=== PATIENT | female | born 1980 | race Caucasian/White ===

== ENCOUNTER → 2022-10-12 | Outpatient (CLI) | payer OTHER ==
[2022-10-12 11:17] LABS: Basophils # (auto) 0 10 ^3/uL (0-0.2); Basophils % (auto) 0.4 % (0.0-2.0); Eosinophils # (auto) 0 10 ^3/uL (0-0.8); Eosinophils % (auto) 0.4 % (0.0-7.0); Hematocrit 39.8 % (36.0-46.0); Hemoglobin 13.1 g/dL (12.2-16.2); Lymphocytes # (auto) 1.8 10 ^3/uL (0.4-5.4); Lymphocytes % (auto) 15.9 % (10.0-50.0); Mean Corpuscular Volume 81.9 fL (80.0-100.0); Monocytes # (auto) 0.5 10 ^3/uL (0-1.3); Monocytes % (auto) 4.6 % (0.0-12.0); Neutrophils % (auto) 78.7 % (37.0-80.0); Red Blood Cells 4.86 10^6/uL (4.0-5.20); Red Cell Distribution Width 15.2 % (11.8-14.3); White Blood Cell 11.4 10^3/uL (4.4-10.8)
[2022-10-12 11:24] LABS: Urine Bacteria NONE SEEN /hpf (None Seen); Urine Blood Negative /uL (Negative); Urine Hyaline Cast FEW /lpf (0 - 2); Urine Mucus FEW (None Seen); Urine Specific Gravity 1.026 (1.001-1.035); Urine WBC 2 /hpf (0 - 5)
[2022-10-12 11:50] LABS: Ferritin 30.4 ng/mL (10-322); Leuteinizing Hormone 3.6 IU/L
[2022-10-12 11:51] LABS: Folate (Folic Acid) 15.1 ng/mL (5.38-24); Follicle Stimulating Hormone 6.34 IU/L (SEE BELOW)
[2022-10-12 12:25] LABS: Albumin 3.5 g/dL (3.4-5.0); Potassium 3.7 mmol/L (3.5-5.1)
[2022-10-12 12:33] LABS: BUN/Creatinine Ratio 25.7 (10.0-20.0); Bilirubin, Total 0.4 mg/dL (0.2-1.0); Calcium 9.2 mg/dL (8.5-10.1); Total Protein 7.4 g/dL (6.4-8.2)
== END | disposition home or self-care (01) ==
LOC: LAB 10:30
PROVIDERS: ATTEND Family Medicine
DX: Z00.01 Encounter for general adult medical examination with abnormal findings (principal); N95.1 Menopausal and female climacteric states; N93.9 Abnormal uterine and vaginal bleeding, unspecified
CPT/HCPCS: 36415; 80053; 80061; 81001; 82306; 82607; 82670; 82728; 82746; 83001; 83002; 83036; 83540; 84403; 84443; 85025

== ENCOUNTER → 2023-07-25 | Outpatient (CLI) | payer OTHER ==
[2023-07-25 09:55] LABS: Urine Bacteria None Seen /hpf (None Seen)
[2023-07-25 10:27] LABS: Urine Blood TRACE /uL (Negative); Urine Clarity Clear (Clear); Urine Color Yellow (Yellow); Urine Mucus FEW (None Seen); Urine Protein, UAD TRACE (Negative); Urine Specific Gravity 1.033 (1.001-1.035); Urine Urobilinogen Normal (Negative); Urine WBC 2 /hpf (0 - 5)
[2023-07-25 11:08] LABS: Alanine Aminotransferase 25 U/L (7-40); Alkaline Phosphatase 56 U/L (46-116); Anion Gap 9 (5-15); BUN/Creatinine Ratio 31.6 (10.0-20.0); Blood Urea Nitrogen 18 mg/dL (9-23); Calcium 9.7 mg/dL (8.5-10.1); Carbon Dioxide 25 mmol/L (20-30); Chloride 104 mmol/L (98-107); Glucose 140 mg/dL (74-106); LDL Cholesterol 124 mg/dL (< 100); Sodium 138 mmol/L (136-145); Triglycerides 107 mg/dL (< 150)
[2023-07-25 11:09] LABS: Albumin 4.6 g/dL (3.2-4.8); Aspartate Aminotransferase 12 U/L (13-40); Bilirubin, Total 0.4 mg/dL (0.2-1.0); Cholesterol 173 mg/dL (< 200); HDL Cholesterol 41 mg/dL (40-59); Total Protein 7.2 g/dL (5.7-8.2)
== END | disposition home or self-care (01) ==
LOC: LAB 09:46
PROVIDERS: ATTEND Family Medicine
DX: N30.00 Acute cystitis without hematuria (principal); E88.810 Metabolic syndrome
CPT/HCPCS: 36415; 80053; 80061; 81001; 87086

== ENCOUNTER → 2024-02-20 | Outpatient (CLI) | payer OTHER ==
[2024-02-20 11:18] LABS: Alanine Aminotransferase 32 U/L (7-40); Albumin 4.6 g/dL (3.2-4.8); Alkaline Phosphatase 60 U/L (46-116); Anion Gap 7 (5-15); Aspartate Aminotransferase 12 U/L (13-40); BUN/Creatinine Ratio 13.6 (10.0-20.0); Bilirubin, Total 0.5 mg/dL (0.2-1.0); Blood Urea Nitrogen 9 mg/dL (9-23); Calcium 10.3 mg/dL (8.7-10.4); Carbon Dioxide 28 mmol/L (20-31); Chloride 104 mmol/L (98-107); Cholesterol 155 mg/dL (< 200); Glucose 165 mg/dL (74-106); HDL Cholesterol 39 mg/dL (40-59); LDL Cholesterol 107 mg/dL (< 100); Potassium 3.7 mmol/L (3.5-5.1); Sodium 139 mmol/L (136-145); Total Protein 7.2 g/dL (5.7-8.2); Triglycerides 112 mg/dL (< 150)
[2024-02-20 11:21] LABS: Creatinine, Urine 326.19 mg/dL (30.0-125.0)
== END | disposition home or self-care (01) ==
LOC: LAB 10:23
PROVIDERS: ATTEND Family Medicine
DX: I12.9 Hypertensive chronic kidney disease with stage 1 through stage 4 chronic kidney disease, or unspecified chronic kidney disease (principal); E11.22 Type 2 diabetes mellitus with diabetic chronic kidney disease; N18.9 Chronic kidney disease, unspecified; E11.65 Type 2 diabetes mellitus with hyperglycemia; E78.2 Mixed hyperlipidemia
CPT/HCPCS: 36415; 80053; 80061; 82043; 82570; 83036

== ENCOUNTER 2024-02-21 18:04 | Inpatient (IN) | payer OTHER ==
[~2024-02-21] VITALS: Ht 175.3 cm; Wt 106.8 kg
[2024-02-21] MEDS: ONDANSETRON HCL 4 MG/2 ML VIAL IV ONE (18:45)
[2024-02-21] MEDS: MORPHINE SULFATE 4 MG/ML SYR/VIAL IV ONE (18:45)
--- NOTE | 2024-02-21 18:47 | ED.PDOC ---
History of Present Illness HPI Comments 43 y/o F, with a Hx of preDM, HLD, HTN, morbid obesity, and 3x laparoscopy, presents with c/o non-radiating, right-sided abdominal pain, nausea, and chills for 1 day. Patient endorses on unprovoked and gradual onset of symptoms, yesterday, that has been persisting since. Patient states on pain being a 9/10 a nd having no Hx of similar pain in the past. Patient informs on being on Ozempic medication for the past 2 months in addition to reporting on not being , currently. Patient denies any additional pertinent or relevant Hx in addition to recent injuries, stress, sick contact, spoiled food, substance use/exposure, or travel. Denies having any vomiting, diarrhea, urinary symptoms, fever, or other associated symptoms or modifiers at this time. 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 Family History Family History: No family hx of DM, No family hx of Heart samuel, No family hx of HTN, No family hx ofKidney samuel, No family hx of Liver samuel, No family hx of Lung samuel, No family hx of Stroke, Family hx of Cancer Social History Smoker: Non-Smoker Alcohol: Denies ETOH Use Drugs: Denies Drug Use Lives In: Home Constitutional: reports: chills; denies: diaphoresis, fatigue, fever, malaise, sweats, weakness, others EENTM: denies: blurred vision, double vision, ear bleeding, ear discharge, ear drainage, ear pain, ear ringing, eye pain, eye redness, hearing loss, mouth pain, mouth swelling, nasal discharge, nose bleeding, nose congestion, nose pain, photophobia, tearing, throat pain, throat swelling, voice changes, others Respiratory: denies: cough, hemoptysis, orthopnea, SOB at rest, shortness of breath, SOB with excertion, stridor, wheezing, others Cardiovascular: denies: chest pain, dizzy spells, diaphoresis, Dyspnea on exertion, edema, irregular heart beat, left arm pain, lightheadedness, palpitations, PND, syncope, others Gastrointestinal: reports: abdominal pain, nausea; denies: abdomen distended, blood streaked bowels, constipated, diarrhea, dysphagia, difficulty swallowing, hematemesis, melena, poor appetite, poor fluid intake, rectal bleeding, rectal pain, vomiting, others Genitourinary: denies: abnormal vagina bleeding, burning, dyspareunia, dysuria, flank pain, frequency, hematuria, incontinence, pain, , vagina discharge, urgency, others Neurological: denies: dizziness, fainting, headache, left sided numbness, left sided weakness, numbness, paresthesia, pre-existing deficit, right sided n umbness, right sided weakness, seizure, speech problems, tingling, tremors, weakness, others Musculoskeletal: denies: back pain, gout, joint pain, joint swelling, muscle pain, muscle stiffness, neck pain, others Integumetry: denies: bruises, change in color, change in hair/nails, dryness, laceration, lesions, lumps, rash, wounds, others Allergic/Immunocompromised: denies: Difficulty Healing, Frequent Infections, Hives, Itching, others Hematologic/Lymphatic: denies: anemia, blood clots, easy bleeding, easy bruising, swollen glands, others Endocrine: denies: excessive hunger, excessive sweating, excessive thirst, excessive urination, flushing, intolerance to cold, intolerance to heat, unexplained weight gain, unexplained weight loss, others Psychiatric: denies: anxiety, bipolar disorder, depression, hopeless, panic disorder, schizophrenia, sleepless, suicidal, others All Other Systems: Reviewed and Negative Physical Exam General Appearance: Moderate Distress, Obese HEENT: Normal ENT Inspection, Pharynx Normal, TMs Normal Neck: Full Range of Motion, Non-Tender, Normal, Normal Inspection Respiratory: Chest Non-Tender, Lungs Clear, No Accessory Muscle Use, No Respiratory Distress, Normal Breath Sounds Cardiovascular: No Edema, No JVD, No Murmur, No Gallop, Normal Peripheral Pulses, Regular Rate/Rhythm Breast Exam: Deferred Gastrointestinal: No Organomegaly, No Pulsatile Mass, Normal Bowel Sounds, RUQ, Soft, Tenderness Genitalia: Deferred Pelvic: Deferred Rectal: Deferred Extremities: No calf tenderness, Normal capillary refill, Normal inspection, Normal range of motion, Non-tender, No pedal edema Musculoskeletal : Apperance: Normal 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 Was a procedure done?: No Differential Dx Considerations may include: cholecystitis, cholelithiasis, gastritis, gastroenteritis, nephrolithiasis, ovarian cysts, ovarian torsion, , ectopic X-Ray, Labs, Meds, VS Vital Signs Date Time Temp Pulse Resp B/P (MAP) Pulse Ox O2 Delivery O2 Flow Rate FiO2 02/21/24 18:22 98.5 99 18 143/91 (108) 95 Lab Test 02/21/24 18:47 02/21/24 18:28 02/21/24 17:20 Range/Units White Blood Count 15.0 H 4.4-10.8 10^3/uL Red Blood Count 4.81 4.0-5.20 10^6/uL Hemoglobin 13.6 12.2-16.2 g/dL Hematocrit 40.0 36.0-46.0 % Mean Corpuscular Volume 83.2 80.0-100.0 fL Mean Corpuscular Hemoglobin 28.4 28.0-32.0 pg Mean Corpuscular Hemoglobin Concent 34.1 32.0-36.0 g/dL Red Cell Distribution Width 14.4 H 11.8-14.3 % Platelet Count 352 140-450 10^3/uL Mean Platelet Volume 8.2 6.9-10.8 fL Neutrophils (%) (Auto) 83.3 H 37.0-80.0 % Lymphocytes (%) (Auto) 10.2 10.0-50.0 % Monocytes (%) (Auto) 5.9 0.0-12.0 % Eosinophils (%) (Auto) 0.1 0.0-7.0 % Basophils (%) (Auto) 0.5 0.0-2.0 % Neutrophils # (Auto) 12.5 H 1.6-8.6 10 ^3/uL Lymphocytes # (Auto) 1.5 0.4-5.4 10 ^3/uL Monocytes # (Auto) 0.9 0-1.3 10 ^3/uL Eosinophils # (Auto) 0 0-0.8 10 ^3/uL Basophils # (Auto) 0.1 0-0.2 10 ^3/uL Nucleated Red Blood Cells 0.0 % Sodium Level 139 136-145 mmol/L Potassium Level 3.2 L 3.5-5.1 mmol/L Chloride Level 104 98-107 mmol/L Carbon Dioxide Level 25 20-31 mmol/L Anion Gap 10 5-15 Blood Urea Nitrogen < 5 L 9-23 mg/dL Creatinine 0.64 0.550-1.02 mg/dL Glomerular Filtration Rate Calc 112 >90 mL/min BUN/Creatinine Ratio 7.8 L 10.0-20.0 Serum Glucose 151 H 74-106 mg/dL Calcium Level 10.4 8.7-10.4 mg/dL Total Bilirubin 0.7 0.2-1.0 mg/dL Aspartate Amino Transferase (AST) 13 13-40 U/L Alanine Aminotransferase (ALT) 35 7-40 U/L Alkaline Phosphatase 67 46-116 U/L Total Protein 7.4 5.7-8.2 g/dL Albumin 4.8 3.2-4.8 g/dL Lipase Pending Urine Test Negative Negative Urine Color Colorless Yellow Urine Clarity Clear Clear Urine pH 7.5 5.0-9.0 Urine Specific [place] 1.006 1.001-1.035 Urine Protein Negative Negative Urine Ketones Negative Negative Urine Blood Negative Negative /uL Urine Nitrite Negative Negative Urine Bilirubin Negative Negative Urine Urobilinogen Normal Negative mg/dL Urine Leukocyte Esterase 3+ Negative /uL Urine RBC 1 0 - 4 /hpf Urine WBC 8 0 - 5 /hpf Urine Squamous Epithelial Cells Few <5 /hpf Urine Amorphous Crystals Few None Seen /hpf Urine Bacteria Few H None Seen /hpf Urine Mucus Few None Seen Urine Glucose Normal Normal mg/dL Ultrasound of the gallbladder shows: IMPRESSION: Cholelithiasis without sonographic evidence of cholecystitis. The patient's [place] [id number] The rest of the CBC and chemistry panel are within normal limits The patient's lipase is within normal limits The test is negative The urine test is positive for UTI The patient was being given Rocephin 1 g IV piggyback for the UTI The patient was given morphine, Zofran and Protonix for the abdominal pain The patient was being admitted at this time. Images Reviewed?: Images reviewed and evaluated by me Time of 1ST Reevaluation: 19:10 Reevaluation 1ST: Unchanged Time of 2ND Reevaluation: 20:18 Reevaluation 2ND: Unchanged Patient Education/Counseling: Diagnosis, Treatment, Prognosis Family Education/Counseling: No Family Present Departure 1 Departure Time of Disposition: 20:19 Impression: Primary Impression: Intractable abdominal pain Additional Impressions: Cholelithiasis Qualified Codes: K80.20 - Calculus of gallbladder without cholecystitis without obstruction UTI (urinary tract infection) Qualified Codes: N30.00 - Acute cystitis without hematuria Disposition: ADMITTED INPATIENT Admit to: Med Surg Condition: Fair Critical Care Note Critical Care Time?: No Stability Stability form required: No Heart Score Heart Score: Heart Score Response (Comments) Value History N/A 0 EKG N/A 0 Age N/A 0 Risk Factors N/A 0 Troponin N/A 0 Total 0 I personally scribed for JULIO SOLO MD ([email or web address]) on 02/21/24 at 18:47. Electronically submitted by Matthias Parada ([email or web address]). JULIO SOLO MD Feb 21, 2024 18:47
[2024-02-21 18:50] LABS: Urine Amorphous Crystal FEW /hpf (None Seen); Urine Bacteria FEW /hpf (None Seen); Urine Blood Negative /uL (Negative); Urine Clarity Clear (Clear); Urine Color Colorless (Yellow); Urine Mucus FEW (None Seen); Urine Protein, UAD Negative (Negative); Urine Specific Gravity 1.006 (1.001-1.035); Urine Urobilinogen Normal (Negative); Urine WBC 8 /hpf (0 - 5); Urine pH 7.5 (5.0-9.0)
[2024-02-21 19:02] LABS: Basophils # (auto) 0.1 10 ^3/uL (0-0.2); Basophils % (auto) 0.5 % (0.0-2.0); Eosinophils # (auto) 0 10 ^3/uL (0-0.8); Eosinophils % (auto) 0.1 % (0.0-7.0); Hemoglobin 13.6 g/dL (12.2-16.2); Lymphocytes # (auto) 1.5 10 ^3/uL (0.4-5.4); Lymphocytes % (auto) 10.2 % (10.0-50.0); Mean Corpuscular Hemoglobin 28.4 pg (28.0-32.0); Mean Corpuscular Hgb Conc. 34.1 g/dL (32.0-36.0); Mean Corpuscular Volume 83.2 fL (80.0-100.0); Monocytes # (auto) 0.9 10 ^3/uL (0-1.3); Monocytes % (auto) 5.9 % (0.0-12.0); Neutrophils # (auto) 12.5 10 ^3/uL (1.6-8.6); Neutrophils % (auto) 83.3 % (37.0-80.0); Platelet Count (auto) 352 10^3/uL (140-450); Red Blood Cells 4.81 10^6/uL (4.0-5.20); Red Cell Distribution Width 14.4 % (11.8-14.3)
[2024-02-21 19:25] LABS: Alanine Aminotransferase 35 U/L (7-40); Albumin 4.8 g/dL (3.2-4.8); Alkaline Phosphatase 67 U/L (46-116); Anion Gap 10 (5-15); Aspartate Aminotransferase 13 U/L (13-40); Bilirubin, Total 0.7 mg/dL (0.2-1.0); Calcium 10.4 mg/dL (8.7-10.4); Carbon Dioxide 25 mmol/L (20-31); Chloride 104 mmol/L (98-107); Glucose 151 mg/dL (74-106); Potassium 3.2 mmol/L (3.5-5.1); Sodium 139 mmol/L (136-145)
[2024-02-21 19:26] LABS: Total Protein 7.4 g/dL (5.7-8.2)
[2024-02-21 19:28] LABS: BUN/Creatinine Ratio 7.8 (10.0-20.0); Blood Urea Nitrogen < 5 mg/dL (9-23)
--- NOTE | 2024-02-21 19:45 | DVH ---
INDICATION: pain TECHNIQUE: Multiple real-time sonographic images were obtained of the right upper quadrant. COMPARISON: None FINDINGS: The liver demonstrates heterogeneous echotexture without focal mass lesions. The liver john sures 23 cm. There is no intrahepatic or extrahepatic ductal dilatation. The common duct measures 0.7 cm. The gallbladder is without evidence of stone or sludge. The gallbladder wall measures 0.3 cm and is within normal limits. The right kidney measures 12.9 cm. The right kidney is normal in contour, size, and shape. The echo genicity is normal. There is no hydronephrosis. The pancreas is not well visualized due to overlying bowel gas. IMPRESSION: Cholelithiasis without sonographic evidence of cholecystitis.
[2024-02-21 19:47] LABS: Lipase 31 U/L (12-53)
[2024-02-21] MEDS: cefTRIAXone 1GM/50ML D5W 50 ML IV ONE (20:30)
[2024-02-21] MEDS ORDERED: MORPHINE SULFATE INJ 2 MG/ml SYRG IV PRN (20:45)
[2024-02-21] MEDS ORDERED: NITROGLYCERIN 0.4 MG SL TAB SL PRN (20:45)
--- NOTE | 2024-02-21 21:52 | DVHHPRES ---
History of Present Illness Resident Creating Document: [facility] RESIDENT History of Present Illness Patient is 43 years old male with past medical history of prediabetes mellitus, hypertension, hyperlipidemia, anxiety, morbid obesity, history of 3 laparoscopic surgery for ovarian cyst came with a complaint of abdominal pain. As per patient patient started having abdominal pain in the epigastric and rapid upper abdominal region started 1 day before, gradual in nature, sharp pain, 10/10 at the beginning now 9/10, moving around the upper abdomen, some pain relief with bowel movement. Patient also endorsed nausea but no vomiting, feeling chilled but no fever. Patient had right knee injury in June 22, 2023 at walk from fall and waiting to be operated. On further discussion patient also reported having urgency and frequency of micturition for last 3-4 days. Also reported constipation for last 3 days. Patient denied any diarrhea, chest pain, short ness of breath, palpitation, acute joint swelling or rash, sick contact, dysarthria change in vision. Initial lab workup revealed leukocytosis with WBC 15.0, hypokalemia, potassium 3.2, serum glucose 151. Urinalysis was positive for UTI, leukocyte esterase 3+, WBC 8, RBC 1, bacteria few. Ultrasound of the abdomen revealed-Cholelithiasis without sonographic evidence of cholecystitis. Patient's home medication include losartan-hydrochlorothiazide, citalopram 10 mg daily, Ozempic, Past Medical History Prediabetes, hypertension, hyperlipidemia, anxiety, morbid obesity, Allergy- NKDA Past Surgical History Laparoscopy x3 due to bilateral ovarian cyst Patient waiting to be operated for right knee injury, Recommended to lose or weight before she can be operated for right knee injury that happened in June 25 at work. Family History Mom cancer of the breast, hypercholesterolemia Dad had cancer 2 of the left groin resume Past Social History Patient denied smoking or alcoholism or drug abuse, lives at home with . Review of Systems Review of Systems Patient reported upper abdominal pain some nausea Cardiovascular- deny acute chest pain or shortness of breath or cough or palpitation Respiratory- denies cough or short of breath or wheezing Gastrointestinal- denies any rectal bleeding, nausea or vomiting Musculoskeletal-denies acute joint swelling or tenderness or redness Neurological- denies acute dysarthria, dysphagia, change in vision Psychiatry- denies depression or SI or HI Skin- denies acute rash or purpura Allergies: Coded Allergies: NO KNOWN ALLERGIES (Unverified , 02/21/24) Medications Current Medications Medications Dose Ordered Sig/Ray Route Start Time Stop Time Status Last Admin Dose Admin Sodium Chloride 10 ml Q8HR IV 02/21/24 22:00 Ondansetron HCl 4 mg Q4HP PRN IV 02/21/24 20:45 Morphine Sulfate 2 mg Q4HPRN PRN IV 02/21/24 20:45 Nitroglycerin 0.4 mg Q5MINP PRN SL 02/21/24 20:45 Morphine Sulfate 2 mg Q30M PRN IV 02/21/24 20:45 Exam Vital Signs Vital Signs Date Time Temp Pulse Resp B/P (MAP) Pulse Ox O2 Delivery O2 Flow Rate FiO2 02/21/24 18:22 98.5 99 18 143/91 (108) 95 Exam General examination- awake, alert, oriented, conversant HEENT- PEERLA, no acute nasal discharge Cardiovascular- S1-S2 audible, rate and rhythm regular, no murmur Respiratory- CTAB, no wheeze or rhonchi Gastrointestinal-epigastric and right upper abdominal tenderness, [place] sign positive, bowel sound+. Nondistended Musculoskeletal-no acute joint swelling or tenderness or redness# Lower extremity- no leg edema Urinary system-right renal angle tenderness positive Neurological- cranial nerves intact, no acute dysarthria or dysphagia Psychiatry- denies depression or SI or HI Skin- no acute rash or purpura Labs/Xrays Labs Test 02/21/24 18:47 02/21/24 18:28 02/21/24 17:20 Range/Units White Blood Count 15.0 H 4.4-10.8 10^3/uL Red Blood Count 4.81 4.0-5.20 10^6/uL Hemoglobin 13.6 12.2-16.2 g/dL Hematocrit 40.0 36.0-46.0 % Mean Corpuscular Volume 83.2 80.0-100.0 fL Mean Corpuscular Hemoglobin 28.4 28.0-32.0 pg Mean Corpuscular Hemoglobin Concent 34.1 32.0-36.0 g/dL Red Cell Distribution Width 14.4 H 11.8-14.3 % Platelet Count 352 140-450 10^3/uL Mean Platelet Volume 8.2 6.9-10.8 fL Neutrophils (%) (Auto) 83.3 H 37.0-80.0 % Lymphocytes (%) (Auto) 10.2 10.0-50.0 % Monocytes (%) (Auto) 5.9 0.0-12.0 % Eosinophils (%) (Auto) 0.1 0.0-7.0 % Basophils (%) (Auto) 0.5 0.0-2.0 % Neutrophils # (Auto) 12.5 H 1.6-8.6 10 ^3/uL Lymphocytes # (Auto) 1.5 0.4-5.4 10 ^3/uL Monocytes # (Auto) 0.9 0-1.3 10 ^3/uL Eosinophils # (Auto) 0 0-0.8 10 ^3/uL Basophils # (Auto) 0.1 0-0.2 10 ^3/uL Nucleated Red Blood Cells 0.0 % Sodium Level 139 136-145 mmol/L Potassium Level 3.2 L 3.5-5.1 mmol/L Chloride Level 104 98-107 mmol/L Carbon Dioxide Level 25 20-31 mmol/L Anion Gap 10 5-15 Blood Urea Nitrogen < 5 L 9-23 mg/dL Creatinine 0.64 0.550-1.02 mg/dL Glomerular Filtration Rate Calc 112 >90 mL/min BUN/Creatinine Ratio 7.8 L 10.0-20.0 Serum Glucose 151 H 74-106 mg/dL Calcium Level 10.4 8.7-10.4 mg/dL Total Bilirubin 0.7 0.2-1.0 mg/dL Aspartate Amino Transferase (AST) 13 13-40 U/L Alanine Aminotransferase (ALT) 35 7-40 U/L Alkaline Phosphatase 67 46-116 U/L Total Protein 7.4 5.7-8.2 g/dL Albumin 4.8 3.2-4.8 g/dL Lipase 31 12-53 U/L Urine Test Negative Negative Urine Color Colorless Yellow Urine Clarity Clear Clear Urine pH 7.5 5.0-9.0 Urine Specific [place] 1.006 1.001-1.035 Urine Protein Negative Negative Urine Ketones Negative Negative Urine Blood Negative Negative /uL Urine Nitrite Negative Negative Urine Bilirubin Negative Negative Urine Urobilinogen Normal Negative mg/dL Urine Leukocyte Esterase 3+ Negative /uL Urine RBC 1 0 - 4 /hpf Urine WBC 8 0 - 5 /hpf Urine Squamous Epithelial Cells Few <5 /hpf Urine Amorphous Crystals Few None Seen /hpf Urine Bacteria Few H None Seen /hpf Urine Mucus Few None Seen Urine Glucose Normal Normal mg/dL Assessment/Plan Assessment/Plan # right upper abdominal and epigastric pain likely due to acute cholecystitis -right upper abdominal pain -[place] sign positive -ultrasound of the abdomen-cholelithiasis -leukocytosis WBC 15.0 -NPO until further order -continue IV fluid as prescribed -ceftriaxone 2 g IV daily -ordered HIDA scan -ordered surgery consult for further evaluation and care -pending CT abdomen and pelvis # suspected acute pyelonephritis -patient with increased urgency and frequency during micturition for last 3-4 days -urinalysis leukocyte esterase 3+, WBC 8, RBC 1, bacteria few -leukocytosis WBC 19832 -right renal angle tenderness positive -continue ceftriaxone 2 g IV daily -continue IV fluid as prescribed -pending CT abdomen and pelvis # sepsis likely due to acute cholecystitis and acute pyelonephritis -leukocytosis WBC 15.0 -pulse 99 -patient complained of chills --patient with increased urgency and frequency during micturition for last 3-4 days -urinalysis leukocyte esterase 3+, WBC 8, RBC 1, bacteria few -right upper abdominal pain -[place] sign positive -ultrasound of the abdomen-cholelithiasis -continue IV fluid as prescribed -continue ceftriaxone 2 g IV daily -pending blood and urine CS -pending CT abdomen and pelvis #Hypokalemia, replenished -K--3.2 -monitor CMP #Diabetes mellitus type 2 -on 02/20/2024- HGB A1c 7.5 -monitor blood sugar -insulin sliding scale #Hypertension -hydralazine 10 mg q.6h p.r.n. -monitor blood pressure #Anxiety -follow up outpatient # Leukocytosis likely due to acute pyelonephritis and acute cholecystitis -continue current management # morbid obesity, BMI 41.7 -patient was counseled about weight reduction, healthy diet, low-fat diet, physical activity Goals of care/advance care planning; FULL CODE; discussed with the patient >15 minutes PUD prophylaxis: Pantoprazole DVT prophylaxis: PCP-Dr. Spencer Plan discussed with Dr. Tobar, nursing staff, patient Total time spent on patient evaluation, chart review, assessment and plan, discussion discussion >30 minutes Plan discussed with: Patient Plan discussed with: Patient, Other (RN) My Orders Orders - ED [facility] Procedure Category Date Status Time Admit ADMIT 02/21/24 Transmitted 20:39 Code Status CODE 02/21/24 Transmitted 20:39 Sodium Chloride Lock PHA 02/21/24 In Process (Saline Lock Ns) 22:00 Ondansetron Hcl PHA 02/21/24 In Process (Zofran) 20:45 Npo (Nothing By DIET 02/22/24 Transmitted Mouth) Diet Breakfast Morphine Sulfate PHA 02/21/24 In Process Injection 20:45 Nitroglycerin PHA 02/21/24 In Process Sublingual (Ntrostat 20:45 Morphine Sulfate PHA 02/21/24 In Process Injection 20:45 Oxygen By Nasal RT 02/21/24 Transmitted Cannula 20:39 Stat Ekg For Chest [facility] 02/21/24 In Process Pain 20:39 Notify Md Of Changes [facility] 02/21/24 In Process From Base 20:39 Missile Inspector Preflight For [facility] 02/21/24 In Process 24 Hours 20:39 Emergency Dysrhythmia [facility] 02/21/24 In Process Protocol 20:39 Rhythm Strips Once [facility] 02/21/24 In Process Every Shift 20:39 Date of Service: Feb 21, 2024 Billing Provider: LIUDMILA TOBAR MD Common Visit Codes: 50612-[id number] INP/OBS CARE (HIGH) ED [facility] Feb 21, 2024 21:52 LIUDMILA TOBAR MD Feb 22, 2024 09:16
[2024-02-21] MEDS: SODIUM CHLOR 0.9% PF (SALINE LOCK) 10ML VIAL/SYR IV SCH (22:00)
[2024-02-21 23:00] VITALS: PULSE 89; RESP 22; O2SAT 95
[2024-02-21] MEDS: PANTOPRAZOLE 40 MG/10 ML VIAL INJ IV ONE (23:43)
[2024-02-21] MEDS: ONDANSETRON HCL 4 MG/2 ML VIAL IV PRN (23:44)
[2024-02-21] MEDS: MORPHINE SULFATE INJ 2 MG/ml SYRG IV PRN (23:44)
[2024-02-22] MEDS: D5W/SOD CHLO 0.9% 1,000 ML IV SCH (00:06)
[2024-02-22] MEDS: cefTRIAXone 1GM/50ML D5W 50 ML IV ONE (00:16)
[2024-02-22] MEDS: POTASSIUM CHLORIDE 40 MEQ, LIDOCAINE 1% (LOCAL ANESTH.) 4 ML in SODIUM CHL 0.9% 250 ML IV ONE (00:23)
[2024-02-22] MEDS: metroNIDAZOLE 500MG/100ML 100 ML IV ONE (00:45)
[2024-02-22] MEDS: KETOROLAC TROMETH 30 MG/ML 1ML VIAL IV PRN (01:15)
[2024-02-22] MEDS ORDERED: ONDANSETRON HCL 4 MG/2 ML VIAL IV PRN (01:45)
[2024-02-22] MEDS: DEXTROSE (50%) 50ML SYRG IV ONE (01:49)
[2024-02-22] MEDS: ACCU-CHEK COMFORT CURVE STRIP VI ONE (01:52)
[2024-02-22] MEDS: InsuLIN REG 1unit/0.01ml Soln (100units/ml) SC ONE (01:53)
[2024-02-22] MEDS: LACTATED RINGER'S 1,000 ML IV SCH (05:15)
[2024-02-22] MEDS: metroNIDAZOLE 500MG/100ML 100 ML IV SCH (06:09)
--- NOTE | 2024-02-22 07:16 | DVH ---
Exam: CT CT AB PEL WO CON-NO ORAL OR IV History: pyelonephritis. Comparison Study: None available at time of dictation. TECHNIQUE: Multidetector CT of the abdomen and pelvis was performed from lung bases to ischial tubero sities. Imaging was performed without IV contrast using axial images. Coronal and sagittal reformats were obtained from the axial data set by the technologist. Radiation Dose Information: CT Dose: CTDI volume is 25.44 mGy. Dose-length product is 1539.37 mGy*cm FINDINGS: Evaluation of solid organs is limited due to lack of intravenous contrast use. Findings: Lung Bases: Bibasilar atelectasis. No acute or significant lung base finding. Normal heart size. No pleural or pericardial effusion. Liver: The liver is normal in size. No focal lesions. Diffusely hypoattenuating liver parenchyma con sistent with hepatic steatosis. Gallbladder and Biliary Tree: Multiple gallstones. Mild gallbladder wall thickening and fat stranding . No biliary ductal dilatation. Spleen: Unremarkable Pancreas: The pancreas is grossly normal in appearance. Adrenal Glands: Unremarkable Kidneys: Kidneys are grossly normal without calculi or hydronephrosis. GI Tract: The stomach is grossly normal in appearance. Small bowel and colon are normal in caliber an d distribution. The appendix is not visualized; however, no secondary findings of acute appendicitis identified. Peritoneal cavity: No pneumoperitoneum. No ascites. Lymphadenopathy: No mesenteric, retroperitoneal or periportal lymphadenopathy. Abdominal Wall and Mesentery: Unremarkable. Vasculature: The visualized abdominal aorta is normal in size and caliber. Evaluation of abdominal a nd pelvic vessels is limited due to lack of intravenous contrast. Pelvic Organs: Left adnexal dominant follicle. Right adnexa and the uterus are unremarkable. Urinary Bladder: Grossly unremarkable for degree of distention. Musculoskeletal: No aggressive focal bony lesions, acute fractures or dislocation. Soft tissues: Unremarkable IMPRESSION: 1. Gallstones and pericholecystic inflammatory changes. Acute cholecystitis is not excluded in the a ppropriate clinical setting. 2. Hepatic steatosis. 3. No evidence of intrarenal calculi or inflammatory changes surrounding the kidneys. Assessment for pyelonephritis is limited in the absence of intravenous contrast. Radiation optimization: All CT scans at this facility use at least one of these dose optimization lupe hniques: automated exposure control mA and/or kV adjustment per patient size (includes targeted exam s where dose is matched to clinical indication) or iterative reconstruction.
[2024-02-22 07:20] LABS: Chloride 106 mmol/L (98-107); Potassium 3.3 mmol/L (3.5-5.1); Sodium 140 mmol/L (136-145)
[2024-02-22 07:21] LABS: Anion Gap 7 (5-15); Basophils # (auto) 0 10 ^3/uL (0-0.2); Basophils % (auto) 0.3 % (0.0-2.0); Calcium 9.4 mg/dL (8.7-10.4); Carbon Dioxide 27 mmol/L (20-31); Eosinophils # (auto) 0.1 10 ^3/uL (0-0.8); Eosinophils % (auto) 0.5 % (0.0-7.0); Hematocrit 35.9 % (36.0-46.0); Hemoglobin 12.3 g/dL (12.2-16.2); Lymphocytes # (auto) 1.8 10 ^3/uL (0.4-5.4); Lymphocytes % (auto) 16.3 % (10.0-50.0); Mean Corpuscular Hemoglobin 29.2 pg (28.0-32.0); Mean Corpuscular Hgb Conc. 34.3 g/dL (32.0-36.0); Monocytes % (auto) 9.3 % (0.0-12.0); Neutrophils % (auto) 73.6 % (37.0-80.0); Platelet Count (auto) 271 10^3/uL (140-450); Red Blood Cells 4.23 10^6/uL (4.0-5.20); Red Cell Distribution Width 14.7 % (11.8-14.3); White Blood Cell 10.9 10^3/uL (4.4-10.8)
[2024-02-22 07:26] LABS: BUN/Creatinine Ratio 9.1 (10.0-20.0); Blood Urea Nitrogen 6 mg/dL (9-23); Glucose 116 mg/dL (74-106)
[2024-02-22 07:51] VITALS: PULSE 77; RESP 16; O2SAT 96
[2024-02-22] MEDS: PANTOPRAZOLE 40 MG/10 ML VIAL INJ IV SCH (10:21)
[2024-02-22] MEDS: cefTRIAXone 2GM/50ML D5W 50 ML IV SCH (10:57)
--- NOTE | 2024-02-22 13:32 | DVHINCON2 ---
Date of service: Feb 22, 2024 Allergies: Coded Allergies: NO KNOWN ALLERGIES (Unverified , 02/21/24) Current Medications Current Medications Medications (Trade) Dose Ordered Sig/Ray Route PRN Reason Start Time Stop Time Status Last Admin Sodium Chloride (Saline Lock Ns) 10 ml Q8HR IV 02/21/24 22:00 02/22/24 06:09 Ondansetron HCl (Zofran) 4 mg Q4HP PRN IV NAUSEA / VOMITING 02/21/24 20:45 02/22/24 05:07 Morphine Sulfate 2 mg Q4HPRN PRN IV SEVERE PAIN (7-10 PAIN SCALE) 02/21/24 20:45 02/22/24 05:11 Nitroglycerin (Ntrostat Sublingual) 0.4 mg Q5MINP PRN SL FOR CHEST PAIN 02/21/24 20:45 Morphine Sulfate 2 mg Q30M PRN IV FOR CHEST PAIN 02/21/24 20:45 Dextrose/Sodium Chloride 1,000 ml @ 125 mls/hr Q8H IV 02/21/24 22:00 02/22/24 05:07 DC 02/22/24 00:06 Pantoprazole Sodium (Protonix) 40 mg DAILY IV 02/22/24 10:00 02/22/24 10:21 Ketorolac Tromethamine (Toradol Injection) 15 mg Q6HPRN PRN IV SEVERE PAIN (7-10 PAIN SCALE) 02/21/24 22:00 02/26/24 21:59 02/22/24 10:22 Ceftriaxone Sodium/Dextrose 50 ml @ 50 mls/hr DAILY@2200 IV 02/22/24 22:00 02/22/24 05:07 DC Metronidazole 100 ml @ 100 mls/hr Q8HR IV 02/22/24 06:00 02/22/24 06:09 Ondansetron HCl (Zofran) 4 mg Q6HPRN PRN IV NAUSEA / VOMITING 02/22/24 01:45 02/22/24 05:07 DC Ceftriaxone Sodium/Dextrose 50 ml @ 50 mls/hr DAILY@2200 IV 02/22/24 10:00 02/25/24 22:59 02/22/24 10:57 Lactated Ringer's 1,000 ml @ 125 mls/hr Q8H IV 02/22/24 05:15 02/22/24 05:15 Vital Signs Vital Signs Date Time Temp Pulse Resp B/P (MAP) Pulse Ox O2 Delivery O2 Flow Rate FiO2 02/22/24 07:51 77 16 96 Room Air* 0 21 02/22/24 07:51 98.2 112/69 (83) 98.2 Labs/Diagnostic Data Labs Test 02/22/24 06:48 02/22/24 01:48 02/21/24 18:47 02/21/24 18:28 Range/Units White Blood Count 10.9 #H 4.4-10.8 10^3/uL Red Blood Count 4.23 4.0-5.20 10^6/uL Hemoglobin 12.3 12.2-16.2 g/dL Hematocrit 35.9 #L 36.0-46.0 % Mean Corpuscular Volume 85.0 80.0-100.0 fL Mean Corpuscular Hemoglobin 29.2 28.0-32.0 pg Mean Corpuscular Hemoglobin Concent 34.3 32.0-36.0 g/dL Red Cell Distribution Width 14.7 H 11.8-14.3 % Platelet Count 271 140-450 10^3/uL Mean Platelet Volume 8.1 6.9-10.8 fL Neutrophils (%) (Auto) 73.6 37.0-80.0 % Lymphocytes (%) (Auto) 16.3 10.0-50.0 % Monocytes (%) (Auto) 9.3 0.0-12.0 % Eosinophils (%) (Auto) 0.5 0.0-7.0 % Basophils (%) (Auto) 0.3 0.0-2.0 % Neutrophils # (Auto) 8.0 1.6-8.6 10 ^3/uL Lymphocytes # (Auto) 1.8 0.4-5.4 10 ^3/uL Monocytes # (Auto) 1.0 0-1.3 10 ^3/uL Eosinophils # (Auto) 0.1 0-0.8 10 ^3/uL Basophils # (Auto) 0 0-0.2 10 ^3/uL Nucleated Red Blood Cells 0.0 % Sodium Level 140 136-145 mmol/L Potassium Level 3.3 L 3.5-5.1 mmol/L Chloride Level 106 98-107 mmol/L Carbon Dioxide Level 27 20-31 mmol/L Anion Gap 7 5-15 Blood Urea Nitrogen 6 L 9-23 mg/dL Creatinine 0.66 0.550-1.02 mg/dL Glomerular Filtration Rate Calc 112 >90 mL/min BUN/Creatinine Ratio 9.1 L 10.0-20.0 Serum Glucose 116 H 74-106 mg/dL Calcium Level 9.4 8.7-10.4 mg/dL Vitamin D 25-Hydroxy 39.7 30.0-100 ng/mL Thyroid Stimulating Hormone (TSH) 3.52 0.55-4.78 uIU/mL POC Glucose 155 H 70-106 mg/dl Total Bilirubin 0.7 0.2-1.0 mg/dL Aspartate Amino Transferase (AST) 13 13-40 U/L Alanine Aminotransferase (ALT) 35 7-40 U/L Alkaline Phosphatase 67 46-116 U/L Total Protein 7.4 5.7-8.2 g/dL Albumin 4.8 3.2-4.8 g/dL Lipase 31 12-53 U/L Urine Test Negative Negative Test 02/21/24 17:20 Range/Units Urine Color Colorless Yellow Urine Clarity Clear Clear Urine pH 7.5 5.0-9.0 Urine Specific [place] 1.006 1.001-1.035 Urine Protein Negative Negative Urine Ketones Negative Negative Urine Blood Negative Negative /uL Urine Nitrite Negative Negative Urine Bilirubin Negative Negative Urine Urobilinogen Normal Negative mg/dL Urine Leukocyte Esterase 3+ Negative /uL Urine RBC 1 0 - 4 /hpf Urine WBC 8 0 - 5 /hpf Urine Squamous Epithelial Cells Few <5 /hpf Urine Amorphous Crystals Few None Seen /hpf Urine Bacteria Few H None Seen /hpf Urine Mucus Few None Seen Urine Glucose Normal Normal mg/dL Microbiology Date/Time Source Procedure Growth Status 02/21/24 17:20 Voided Urine Urine Culture - Preliminary Resulted Assessment awaiting HIDA scan to fully evaluate pt. Plan discussed with: Other AMARI ADAME MD Feb 22, 2024 13:32
--- NOTE | 2024-02-22 16:31 | DVH ---
EXAM: NM NM HIDA SCAN History: Right upper abdominal pain, cholelithiasis Comparison Study: None available TECHNIQUE: Following intravenous administration of 6.0 mCi of Tc-99m mebrofenin (Choletec), dynamic sequential images of the right upper abdomen were acquired for 60 minutes. An additional planar image in the lateral right upper quadrant was also obtained. After the intravenous administration of 2 mg of morphine sulfate, additional dynamic images were acqu ired for 30 minutes. FINDINGS: The liver demonstrates prompt radiotracer uptake with clearance from blood pool. No focal perfusion d efects were noted. There was prompt excretion of the radiotracer into the biliary tree, without evide nce of biliary dilatation or obstruction. Following administration of morphine, there was no filling of the gallbladder. IMPRESSION: 1. Nonvisualized gallbladder, consistent with acute cholecystitis.
--- NOTE | 2024-02-22 18:44 | DVHPN2 ---
Subjective Seen and examined at bedside, cont Abx. HIDA was done Acute Cholecystitis, likely needs surgery Changes from previous H/P or p: No Changes Objective Vitals Vital Signs Date Time Temp Pulse Resp B/P (MAP) Pulse Ox O2 Delivery O2 Flow Rate FiO2 02/22/24 16:59 97.5 95 16 94/55 (68) 95 97.5 02/22/24 07:51 Room Air* 0 21 Intake/Output Intake and Output 02/22/24 07:00 Intake Total 1174.0 ml Balance 1174.0 ml Intake IV Total 1174.0 ml Exam Gen: in bed NAD Cvs: N S1/S2, RRR Resp: BLAE Abd: RUQ pain Pet Care Attendant: AAO x 4 Medications Current Medications Medications Dose Ordered Sig/Ray Route Start Time Stop Time Status Last Admin Dose Admin Sodium Chloride 10 ml Q8HR IV 02/21/24 22:00 02/22/24 14:17 10 ML Ondansetron HCl 4 mg Q4HP PRN IV 02/21/24 20:45 02/22/24 14:31 4 MG Morphine Sulfate 2 mg Q4HPRN PRN IV 02/21/24 20:45 02/22/24 14:31 2 MG Nitroglycerin 0.4 mg Q5MINP PRN SL 02/21/24 20:45 Morphine Sulfate 2 mg Q30M PRN IV 02/21/24 20:45 Pantoprazole Sodium 40 mg DAILY IV 02/22/24 10:00 02/22/24 10:21 40 MG Ketorolac Tromethamine 15 mg Q6HPRN PRN IV 02/21/24 22:00 02/26/24 21:59 02/22/24 17:58 15 MG Metronidazole 100 ml @ 100 mls/hr Q8HR IV 02/22/24 06:00 02/22/24 15:52 100 MLS/HR Ceftriaxone Sodium/Dextrose 50 ml @ 50 mls/hr DAILY@2200 IV 02/22/24 10:00 02/25/24 22:59 02/22/24 10:57 50 MLS/HR Lactated Ringer's 1,000 ml @ 125 mls/hr Q8H IV 02/22/24 05:15 02/22/24 15:52 125 MLS/HR Laboratory Results Laboratory Tests 02/22/24 06:48 Chemistry Test 02/21/24 18:47 02/22/24 06:48 Albumin 4.8 g/dL (3.2-4.8) Calcium Level 10.4 mg/dL (8.7-10.4) 9.4 mg/dL (8.7-10.4) Total Protein 7.4 g/dL (5.7-8.2) Lipid panel Test 02/21/24 18:47 Lipase 31 U/L (12-53) LFT Test 02/21/24 18:47 Alanine Aminotransferase (ALT) 35 U/L (7-40) Alkaline Phosphatase 67 U/L (46-116) Aspartate Amino Transferase (AST) 13 U/L (13-40) Total Bilirubin 0.7 mg/dL (0.2-1.0) HgA1c, TSH Test 02/22/24 06:48 Thyroid Stimulating Hormone (TSH) 3.52 uIU/mL (0.55-4.78) Urinalysis Test 02/21/24 17:20 02/21/24 18:28 Urine Color Colorless (Yellow) Urine Clarity Clear (Clear) Urine pH 7.5 (5.0-9.0) Urine Specific [place] 1.006 (1.001-1.035) Urine Protein Negative (Negative) Urine Ketones Negative (Negative) Urine Blood Negative /uL (Negative) Urine Nitrite Negative (Negative) Urine Bilirubin Negative (Negative) Urine Urobilinogen Normal mg/dL (Negative) Urine Leukocyte Esterase 3+ /uL (Negative) Urine RBC 1 /hpf (0 - 4) Urine WBC 8 /hpf (0 - 5) Urine Squamous Epithelial Cells Few /hpf (<5) Urine Amorphous Crystals Few /hpf (None Seen) Urine Bacteria Few /hpf (None Seen) H Urine Mucus Few (None Seen) Urine Glucose Normal mg/dL (Normal) Urine Test Negative (Negative) Microbiology Microbiology Date/Time Source Procedure Growth Status 02/21/24 17:20 Voided Urine Urine Culture - Preliminary Resulted Assessment/Plan Assessment/Plan # Acute Cholecystitis - Cont Abx - Surgical consult # DM2 A1c 7.5 - SSI # 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 Plan discussed with: Patient My Orders Orders - LIUDMILA DEGROOT MD Procedure Category Date Status Time Comprehensive LAB 02/23/24 Verified Metabolic Panel 04:00 Complete Blood Count LAB 02/23/24 Verified 04:00 Magnesium LAB 02/23/24 Verified 04:00 Prothrombin Time W/ LAB 02/23/24 Verified INR 04:00 Partial LAB 02/23/24 Verified Thromboplastin Time 04:00 Chest Portable XY 02/23/24 Logged 04:00 Hemoglobin A1c LAB 02/23/24 Verified 04:00 Date of Service: Feb 22, 2024 Billing Provider: LIUDMILA DEGROOT MD Common Visit Codes: [id number] INP/OBS CARE(HIGH) LIUDMILA DEGROOT MD Feb 22, 2024 18:44
[2024-02-22 19:45] VITALS: PULSE 94; RESP 16; O2SAT 96
[2024-02-22] MEDS ORDERED: cefTRIAXone 2GM/50ML D5W 50 ML IV SCH (22:00)
[2024-02-23] VITALS (10 sets, daily range): BP systolic 100–119; BP diastolic 53–71; PULSE 55–109; RESP 18–20; TEMP 97.6–98; O2SAT 92–96
[2024-02-23 05:31] LABS: Basophils # (auto) 0 10 ^3/uL (0-0.2); Basophils % (auto) 0.1 % (0.0-2.0); Eosinophils # (auto) 0.1 10 ^3/uL (0-0.8); Eosinophils % (auto) 1.1 % (0.0-7.0); Hematocrit 33.3 % (36.0-46.0); Hemoglobin 11.4 g/dL (12.2-16.2); Lymphocytes # (auto) 1.4 10 ^3/uL (0.4-5.4); Mean Corpuscular Hgb Conc. 34.4 g/dL (32.0-36.0); Mean Corpuscular Volume 84.4 fL (80.0-100.0); Monocytes # (auto) 0.9 10 ^3/uL (0-1.3); Monocytes % (auto) 8.8 % (0.0-12.0); Platelet Count (auto) 252 10^3/uL (140-450); Red Blood Cells 3.94 10^6/uL (4.0-5.20); Red Cell Distribution Width 14.7 % (11.8-14.3); White Blood Cell 10.4 10^3/uL (4.4-10.8)
[2024-02-23 05:44] LABS: INR 1.14 (0.9-1.15); Partial Thromboplastin Time 32.4 SEC (24.5-34.5)
[2024-02-23 05:48] LABS: Alanine Aminotransferase 44 U/L (7-40); Albumin 3.7 g/dL (3.2-4.8); Alkaline Phosphatase 64 U/L (46-116); Anion Gap 10 (5-15); Aspartate Aminotransferase 29 U/L (13-40); Blood Urea Nitrogen 11 mg/dL (9-23); Carbon Dioxide 25 mmol/L (20-31); Chloride 106 mmol/L (98-107); Glucose 130 mg/dL (74-106); Magnesium 1.8 mg/dL (1.6-2.6); Potassium 3.2 mmol/L (3.5-5.1); Sodium 141 mmol/L (136-145)
[2024-02-23 05:49] LABS: Bilirubin, Total 0.5 mg/dL (0.2-1.0); Total Protein 5.9 g/dL (5.7-8.2)
--- NOTE | 2024-02-23 06:30 | DVH ---
CHEST RADIOGRAPH Indication: preop Technique: Single frontal view of the chest was obtained Comparison: None. FINDINGS: Lines and Tubes: None Lungs: No focal consolidation. Pleura: No effusion. No pneumothorax. Cardiomediastinal contours: Unremarkable Bones: No acute osseous abnormality. IMPRESSION: 1. No acute cardiopulmonary disease.
[2024-02-23] MEDS ORDERED: ONDANSETRON HCL 4 MG/2 ML VIAL ONE (11:26)
[2024-02-23] MEDS ORDERED: MIDAZOLAM HCL 2MG/2ML 2ml VIAL (1mg/ml) ONE (11:26)
[2024-02-23] MEDS ORDERED: LIDOCAINE HCL 2% TOP JELLY 5ML TOP ONE (11:26)
[2024-02-23] MEDS ORDERED: fentaNYL CITRATE 100 MCG/2 ML VL ONE (11:26)
[2024-02-23] MEDS ORDERED: NEOSTIGMINE 1 MG/ML INJ (10mg/10ML VIAL) ONE (11:26)
[2024-02-23] MEDS ORDERED: SODIUM CHLORIDE LOCK 10 ML ONE (11:26)
[2024-02-23] MEDS ORDERED: GLYCOPYRROLATE 0.2 MG/ML 1ML VIAL ONE (11:26)
[2024-02-23] MEDS ORDERED: PROPOFOL 10 MG/ML 20 ML IV ONE (11:26)
[2024-02-23] MEDS ORDERED: MEPERIDINE HCL (50 MG/ML) 1 ML VIAL ONE (11:26)
[2024-02-23] MEDS ORDERED: KETAMINE 50mg/ML 10ml Vial 10 ML ONE (11:26)
[2024-02-23] MEDS ORDERED: LIDOCAINE 1% INJ PF 5ML AMP ONE (11:26)
--- NOTE | 2024-02-23 11:39 | DVHINCON2 ---
Date of service: Feb 23, 2024 Family History: Patient reports no known family medical history. Allergies: Coded Allergies: NO KNOWN ALLERGIES (Unverified , 02/21/24) Home Meds Unable to Obtain Active Prescriptions or Reported Meds Current Medications Current Medications Medications (Trade) Dose Ordered Sig/Ray Route PRN Reason Start Time Stop Time Status Last Admin Ceftriaxone Sodium/Dextrose 50 ml @ 50 mls/hr DAILY@2200 IV 02/22/24 22:00 02/22/24 05:07 DC Vital Signs Vital Signs Date Time Temp Pulse Resp B/P (MAP) Pulse Ox O2 Delivery O2 Flow Rate FiO2 02/23/24 09:00 97.7 87 20 119/68 (85) 96 97.7 02/23/24 02:56 Room Air* 0 21 Labs/Diagnostic Data Labs Test 02/23/24 05:04 02/22/24 06:48 02/22/24 01:48 02/21/24 18:47 Range/Units White Blood Count 10.4 4.4-10.8 10^3/uL Red Blood Count 3.94 L 4.0-5.20 10^6/uL Hemoglobin 11.4 L 12.2-16.2 g/dL Hematocrit 33.3 L 36.0-46.0 % Mean Corpuscular Volume 84.4 80.0-100.0 fL Mean Corpuscular Hemoglobin 29.0 28.0-32.0 pg Mean Corpuscular Hemoglobin Concent 34.4 32.0-36.0 g/dL Red Cell Distribution Width 14.7 H 11.8-14.3 % Platelet Count 252 140-450 10^3/uL Mean Platelet Volume 7.8 6.9-10.8 fL Neutrophils (%) (Auto) 77.0 37.0-80.0 % Lymphocytes (%) (Auto) 13.0 10.0-50.0 % Monocytes (%) (Auto) 8.8 0.0-12.0 % Eosinophils (%) (Auto) 1.1 0.0-7.0 % Basophils (%) (Auto) 0.1 0.0-2.0 % Neutrophils # (Auto) 8.0 1.6-8.6 10 ^3/uL Lymphocytes # (Auto) 1.4 0.4-5.4 10 ^3/uL Monocytes # (Auto) 0.9 0-1.3 10 ^3/uL Eosinophils # (Auto) 0.1 0-0.8 10 ^3/uL Basophils # (Auto) 0 0-0.2 10 ^3/uL Nucleated Red Blood Cells 0.0 % Prothrombin Time 12.0 H 9.3-11.8 sec Prothrombin Time INR 1.14 0.9-1.15 Activated Partial Thromboplast Time 32.4 24.5-34.5 SEC Sodium Level 141 136-145 mmol/L Potassium Level 3.2 L 3.5-5.1 mmol/L Chloride Level 106 98-107 mmol/L Carbon Dioxide Level 25 20-31 mmol/L Anion Gap 10 5-15 Blood Urea Nitrogen 11 9-23 mg/dL Creatinine 0.61 0.550-1.02 mg/dL Glomerular Filtration Rate Calc 114 >90 mL/min BUN/Creatinine Ratio 18.0 10.0-20.0 Serum Glucose 130 H 74-106 mg/dL Calcium Level 9.0 8.7-10.4 mg/dL Magnesium Level 1.8 1.6-2.6 mg/dL Total Bilirubin 0.5 0.2-1.0 mg/dL Aspartate Amino Transferase (AST) 29 13-40 U/L Alanine Aminotransferase (ALT) 44 H 7-40 U/L Alkaline Phosphatase 64 46-116 U/L Total Protein 5.9 5.7-8.2 g/dL Albumin 3.7 3.2-4.8 g/dL Vitamin B12 Level 333 211-911 pg/mL Vitamin D 25-Hydroxy 39.7 30.0-100 ng/mL Thyroid Stimulating Hormone (TSH) 3.52 0.55-4.78 uIU/mL POC Glucose 155 H 70-106 mg/dl Lipase 31 12-53 U/L Test 02/21/24 18:28 02/21/24 17:20 Range/Units Urine Test Negative Negative Urine Color Colorless Yellow Urine Clarity Clear Clear Urine pH 7.5 5.0-9.0 Urine Specific [place] 1.006 1.001-1.035 Urine Protein Negative Negative Urine Ketones Negative Negative Urine Blood Negative Negative /uL Urine Nitrite Negative Negative Urine Bilirubin Negative Negative Urine Urobilinogen Normal Negative mg/dL Urine Leukocyte Esterase 3+ Negative /uL Urine RBC 1 0 - 4 /hpf Urine WBC 8 0 - 5 /hpf Urine Squamous Epithelial Cells Few <5 /hpf Urine Amorphous Crystals Few None Seen /hpf Urine Bacteria Few H None Seen /hpf Urine Mucus Few None Seen Urine Glucose Normal Normal mg/dL Microbiology Date/Time Source Procedure Growth Status 02/21/24 22:15 Blood Blood Culture - Preliminary NO GROWTH AFTER 24 HOURS OF INCUBATION. Resulted 02/21/24 17:20 Voided Urine Urine Culture - Preliminary Resulted Assessment awaiting HIDA scan to fully evaluate pt. abdominal pain, gallstones, positive HIDA scan, laparoscopic possibly open cholecystectomy, risks and complications explained in detail Plan discussed with: Patient AMARI ADAME MD Feb 23, 2024 11:38
[2024-02-23] MEDS ORDERED: fentaNYL CITRATE 100 MCG/2 ML VL IV PRN (11:45)
[2024-02-23] MEDS ORDERED: HYDROmorphone HCL 2 MG/ML VL/or syr IV PRN ×3 (11:45→13:15)
[2024-02-23] MEDS ORDERED: MORPHINE SULFATE INJ 2 MG/ml SYRG IV PRN (11:45)
[2024-02-23] MEDS ORDERED: SUGAMMADEX 200mg/2ml Vial (100MG/ML) IV ONE (12:49)
[2024-02-23] MEDS ORDERED: HYDROMORPHONE HCL 1 MG/ML INJ IV PRN (13:15)
[2024-02-23] MEDS ORDERED: ONDANSETRON HCL 4 MG/2 ML VIAL IV PRN (13:15)
[2024-02-23] MEDS ORDERED: ACETAMINOPHEN IV 1000 MG/100ML (10MG/ML) IV PRN (13:15)
[2024-02-23] MEDS ORDERED: MEPERIDINE HCL (25 MG/ML) 1ML VIAL IV PRN (13:15)
--- NOTE | 2024-02-23 13:30 | DVHOP ---
DATE OF SURGERY: 02/23/2024 PREOPERATIVE DIAGNOSES: Cholelithiasis and cholecystitis. POSTOPERATIVE DIAGNOSES: Morbid obesity, cholelithiasis, and cholecystitis. SURGEON: Doug Parnell MD ANESTHESIA: General endotracheal. ANESTHESIOLOGIST: ____. PROCEDURE: Laparoscopy, laparoscopic cholecystectomy. DESCRIPTION OF PROCEDURE: Under general endotracheal anesthesia, with the patient's skin prepped and draped, supraumbilical incision was made and Veress needle inserted by the hanging drop technique in order to establish pneumoperitoneum to 15 mmHg pressure by insufflation with carbon dioxide. With the abdomen fully distended, the needle was removed and replaced with a 5 mm trocar port through which a 0-degree viewing laparoscope was inserted and laparoscopy was performed. It was hampered by the patient's morbid obesity; however, no obvious unexpected pathology was encountered. Under direct vision, additional 5 and 10 mm ports were inserted. The 5 mm through the right anterior axillary line at the level of the umbilicus and the subxiphoid skin was used for insertion of a 10 mm port. The gallbladder was massively dilated, visibly distended and affected by chronic as well as acute cholecystitis. The gallbladder was placed on tension. The cystic duct and cystic artery were meticulously dissected. It was very difficult to visualize due to the patient's obesity as well as inflammatory changes. However, once the cystic duct was identified at the site of its exit from the gallbladder, it was skeletonized and traced into the hepaticocystic triangle so as to minimize the potential for inadvertent injury to the common bile duct. Similarly, the cystic artery was identified, traced into the hepaticocystic triangle and again after being skeletonized of much adipose tissue. It was controlled with Hemoclips and divided between them. Subsequently, the gallbladder, which was almost entirely intrahepatic, was resected from its liver bed by electrocautery and traction. The fact that the gallbladder was intrahepatic resulted in denuding of significant portion of the liver parenchyma and the gallbladder fossa, which necessitated insertion of a 10 mm Sancho-Mills drain underneath the right lobe of the liver, which was then exteriorized through the 5 mm port site on the right lateral abdomen secured with a 2-0 nylon suture. The right upper quadrant was irrigated, irrigant was aspirated. Hemostasis was meticulously accomplished, found to be complete. At the termination of the procedure, there was no evidence of bleeding from either the port sites or from the liver bed of the gallbladder. The pneumoperitoneum was evacuated. Fascial defect closed using 0 Vicryl. Metallic skin cristhian used for approximation of skin edges. The patient remained hemodynamically stable throughout the procedure, left the operating room following an accurate needle and sponge count. The patient's , Mitchell was thoroughly informed in the waiting room and was given a sample of the multitude of very large stones, which had occupied the patient's gallbladder. These were washed prior to giving it to the patient's . Doug Parnell MD PF TID: [id number] RECEIPT: [id number]
[2024-02-23] MEDS: ceFAZolin 2 GM/D5W50ml 50 ML IV SCH (14:00)
[2024-02-23] MEDS: metroNIDAZOLE 500MG/100ML 100 ML IV SCH (14:27)
[2024-02-23] MEDS: D5W/SOD CHL 0.45%/KCL 20MEQ 1,000 ML IV SCH (14:27)
--- NOTE | 2024-02-23 16:02 | DVHPN2 ---
Subjective Seen and examined at bedside, s/p Anette Perez. Changes from previous H/P or p: No Changes Objective Vitals Vital Signs Date Time Temp Pulse Resp B/P (MAP) Pulse Ox O2 Delivery O2 Flow Rate FiO2 02/23/24 13:06 109 18 93 Mask 6.0 02/23/24 13:06 95 02/23/24 13:06 97.8 144/83 (103) 97.8 Intake/Output Intake and Output 02/23/24 07:00 Intake Total 550 ml Balance 550 ml Intake IV Total 550 ml # Voids 1 Exam Gen: in bed NAD Cvs: N S1/S2, RRR Resp: BLAE Abd: Surgical dressing CDI Acid Loader: AAO x 4 Medications Current Medications Medications Dose Ordered Sig/Ray Route Start Time Stop Time Status Last Admin Dose Admin Sodium Chloride 10 ml Q8HR IV 02/21/24 22:00 02/23/24 14:28 10 ML Ondansetron HCl 4 mg Q4HP PRN IV 02/21/24 20:45 02/22/24 14:31 4 MG Nitroglycerin 0.4 mg Q5MINP PRN SL 02/21/24 20:45 Morphine Sulfate 2 mg Q30M PRN IV 02/21/24 20:45 Pantoprazole Sodium 40 mg DAILY IV 02/22/24 10:00 02/23/24 09:52 40 MG Ketorolac Tromethamine 15 mg Q6HPRN PRN IV 02/21/24 22:00 02/26/24 21:59 02/23/24 05:50 15 MG Potassium Chloride/Dextrose/ Sod Cl 1,000 ml @ 120 mls/hr Q8H20M IV 02/23/24 13:15 02/23/24 14:27 120 MLS/HR Cefazolin Sodium/ Dextrose 50 ml @ 50 mls/hr Q8HR IV 02/23/24 14:00 Metronidazole 100 ml @ 100 mls/hr Q8HR IV 02/23/24 14:00 02/23/24 14:27 100 MLS/HR Hydromorphone HCl 1 mg Q3HPRN PRN IV 02/23/24 13:15 Ondansetron HCl 4 mg Q4HPRN PRN IV 02/23/24 13:15 Laboratory Results Laboratory Tests 02/23/24 05:04 Chemistry Test 02/23/24 05:04 Albumin 3.7 g/dL (3.2-4.8) Calcium Level 9.0 mg/dL (8.7-10.4) Magnesium Level 1.8 mg/dL (1.6-2.6) Total Protein 5.9 g/dL (5.7-8.2) Coagulation Test 02/23/24 05:04 Prothrombin Time 12.0 sec (9.3-11.8) H Prothrombin Time INR 1.14 (0.9-1.15) Activated Partial Thromboplast Time 32.4 SEC (24.5-34.5) LFT Test 02/23/24 05:04 Alanine Aminotransferase (ALT) 44 U/L (7-40) H Alkaline Phosphatase 64 U/L (46-116) Aspartate Amino Transferase (AST) 29 U/L (13-40) Total Bilirubin 0.5 mg/dL (0.2-1.0) Urinalysis Test 02/21/24 17:20 02/21/24 18:28 Urine Color Colorless (Yellow) Urine Clarity Clear (Clear) Urine pH 7.5 (5.0-9.0) Urine Specific [place] 1.006 (1.001-1.035) Urine Protein Negative (Negative) Urine Ketones Negative (Negative) Urine Blood Negative /uL (Negative) Urine Nitrite Negative (Negative) Urine Bilirubin Negative (Negative) Urine Urobilinogen Normal mg/dL (Negative) Urine Leukocyte Esterase 3+ /uL (Negative) Urine RBC 1 /hpf (0 - 4) Urine WBC 8 /hpf (0 - 5) Urine Squamous Epithelial Cells Few /hpf (<5) Urine Amorphous Crystals Few /hpf (None Seen) Urine Bacteria Few /hpf (None Seen) H Urine Mucus Few (None Seen) Urine Glucose Normal mg/dL (Normal) Urine Test Negative (Negative) Microbiology Microbiology Date/Time Source Procedure Growth Status 02/21/24 22:15 Blood Blood Culture - Preliminary NO GROWTH AFTER 24 HOURS OF INCUBATION. 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
[2024-02-23] MEDS: CYANOCOBALAMIN (B-12) 1000 MCG/1 ML VIAL IM ONE (18:37)
[2024-02-24 01:00] VITALS: BP 119/69; PULSE 71; RESP 18; TEMP 97.7; O2SAT 95
[2024-02-24 05:47] LABS: Basophils # (auto) 0 10 ^3/uL (0-0.2); Basophils % (auto) 0.1 % (0.0-2.0); Eosinophils # (auto) 0 10 ^3/uL (0-0.8); Hematocrit 31.9 % (36.0-46.0); Hemoglobin 11.2 g/dL (12.2-16.2); Lymphocytes % (auto) 9.3 % (10.0-50.0); Mean Corpuscular Hemoglobin 29.3 pg (28.0-32.0); Mean Corpuscular Hgb Conc. 35.1 g/dL (32.0-36.0); Mean Corpuscular Volume 83.4 fL (80.0-100.0); Monocytes # (auto) 0.6 10 ^3/uL (0-1.3); Monocytes % (auto) 5.9 % (0.0-12.0); Neutrophils % (auto) 84.7 % (37.0-80.0); Platelet Count (auto) 296 10^3/uL (140-450); Red Blood Cells 3.82 10^6/uL (4.0-5.20); Red Cell Distribution Width 14.7 % (11.8-14.3); White Blood Cell 10.6 10^3/uL (4.4-10.8)
[2024-02-24 06:04] LABS: Alanine Aminotransferase 58 U/L (7-40); Alkaline Phosphatase 71 U/L (46-116); Anion Gap 7 (5-15); BUN/Creatinine Ratio 18.5 (10.0-20.0); Blood Urea Nitrogen 10 mg/dL (9-23); Calcium 8.5 mg/dL (8.7-10.4); Carbon Dioxide 26 mmol/L (20-31); Chloride 107 mmol/L (98-107); Glucose 153 mg/dL (74-106); Potassium 3.7 mmol/L (3.5-5.1); Sodium 140 mmol/L (136-145)
[2024-02-24 06:05] LABS: Albumin 3.7 g/dL (3.2-4.8); Aspartate Aminotransferase 32 U/L (13-40); Bilirubin, Total 0.3 mg/dL (0.2-1.0); Total Protein 5.9 g/dL (5.7-8.2)
[2024-02-24 08:59] VITALS: BP 117/71; PULSE 67; RESP 20; TEMP 97.6; O2SAT 96
--- NOTE | 2024-02-24 11:50 | DVHPN2 ---
Progress Note Date Seen: Feb 24, 2024 Medical Necessity Reason Pt with a Central, PICC or Fol: No Objective vital signs Vital Sign Date Time Temp Pulse Resp B/P (MAP) Pulse Ox O2 Delivery O2 Flow Rate FiO2 02/24/24 08:59 97.6 67 20 117/71 (86) 96 97.6 02/23/24 20:00 Room Air* 0 21 Total Intake and Output 02/23/24 02/23/24 02/24/24 15:00 23:00 07:00 Intake Total 20 ml 645 ml 2140 ml Balance 20 ml 645 ml 2140 ml medications Current Medications Medications Dose Ordered Sig/Ray Route Start Time Stop Time Status Last Admin Dose Admin Sodium Chloride 10 ml Q8HR IV 02/21/24 22:00 02/24/24 06:19 10 ML Ondansetron HCl 4 mg Q4HP PRN IV 02/21/24 20:45 02/22/24 14:31 4 MG Nitroglycerin 0.4 mg Q5MINP PRN SL 02/21/24 20:45 Morphine Sulfate 2 mg Q30M PRN IV 02/21/24 20:45 Pantoprazole Sodium 40 mg DAILY IV 02/22/24 10:00 02/24/24 09:38 40 MG Ketorolac Tromethamine 15 mg Q6HPRN PRN IV 02/21/24 22:00 02/26/24 21:59 02/24/24 02:19 15 MG Potassium Chloride/Dextrose/ Sod Cl 1,000 ml @ 120 mls/hr Q8H20M IV 02/23/24 13:15 02/24/24 06:17 120 MLS/HR Cefazolin Sodium/ Dextrose 50 ml @ 50 mls/hr Q8HR IV 02/23/24 14:00 02/24/24 06:21 50 MLS/HR Metronidazole 100 ml @ 100 mls/hr Q8HR IV 02/23/24 14:00 02/24/24 05:24 100 MLS/HR Hydromorphone HCl 1 mg Q3HPRN PRN IV 02/23/24 13:15 Ondansetron HCl 4 mg Q4HPRN PRN IV 02/23/24 13:15 laboratory and microbiology Laboratory Tests 02/24/24 05:20 Test 02/24/24 05:20 Range/Units Serum Glucose 153 H 74-106 mg/dL Problem List/Assessment/Plan Problem List/Assessment/Plan 02/24/24 doinf well, wounds clean and well approximatesd, abdomen appropriately tender, drainage non bilious, may be discharged, instructions given Plan discussed with: Patient AMARI ADAME MD Feb 24, 2024 11:50
[2024-02-24 13:00] VITALS: BP 108/64; PULSE 62; RESP 19; TEMP 97.8; O2SAT 98
[2024-02-24] MEDS: BACITRACIN TOP OINT 1 UD PKG TOP ONE (14:55)
[2024-02-24] MEDS: BUPIVACAINE W/ EPINEPH 0.5% INJ 50ML MDV IJ ONE (14:55)
[2024-02-24] MEDS: ROCURONIUM 10MG/ML 10ML VIAL IV ONE (14:55)
[2024-02-24] MEDS: SUCCINYLCHOLINE CHLORIDE 20 MG/ML 10ML VIAL IV ONE (14:56)
[2024-02-24] MEDS: METOCLOPRAMIDE HCL 5MG/ml INJ 2ml VIAL IV ONE (14:56)
[2024-02-24] MEDS: ceFAZolin 2 GM/D5W100ml 100 ML IV ONE (14:56)
[2024-02-24] MEDS: KETOROLAC TROMETH 30 MG/ML 1ML VIAL IV ONE (14:56)
[2024-02-24] MEDS: ONDANSETRON HCL 4 MG/2 ML VIAL IV ONE (14:57)
[2024-02-24] MEDS ORDERED: AUG875T PO (16:54)
[2024-02-24] MEDS ORDERED: EMPA1TAB PO (16:57)
[2024-02-24 17:00] VITALS: BP 91/61; PULSE 71; RESP 18; TEMP 97.5; O2SAT 97
--- NOTE | 2024-02-24 17:00 | DVHDS2 ---
Discharge Summary Date of Admission Feb 21, 2024 at 20:39 Date of Discharge: Feb 24, 2024 Admitting Diagnosis Acute Cholecystitis Labs/Diagnostic Data: Laboratory Results Test 02/24/24 05:20 02/23/24 05:04 02/22/24 06:48 02/22/24 01:48 White Blood Count 10.6 10^3/uL (4.4-10.8) Red Blood Count 3.82 10^6/uL (4.0-5.20) Hemoglobin 11.2 g/dL (12.2-16.2) Hematocrit 31.9 % (36.0-46.0) Mean Corpuscular Volume 83.4 fL (80.0-100.0) Mean Corpuscular Hemoglobin 29.3 pg (28.0-32.0) Mean Corpuscular Hemoglobin Concent 35.1 g/dL (32.0-36.0) Red Cell Distribution Width 14.7 % (11.8-14.3) Platelet Count 296 10^3/uL (140-450) Mean Platelet Volume 7.7 fL (6.9-10.8) Neutrophils (%) (Auto) 84.7 % (37.0-80.0) Lymphocytes (%) (Auto) 9.3 % (10.0-50.0) Monocytes (%) (Auto) 5.9 % (0.0-12.0) Eosinophils (%) (Auto) 0.0 % (0.0-7.0) Basophils (%) (Auto) 0.1 % (0.0-2.0) Neutrophils # (Auto) 9.0 10 ^3/uL (1.6-8.6) Lymphocytes # (Auto) 1.0 10 ^3/uL (0.4-5.4) Monocytes # (Auto) 0.6 10 ^3/uL (0-1.3) Eosinophils # (Auto) 0 10 ^3/uL (0-0.8) Basophils # (Auto) 0 10 ^3/uL (0-0.2) Nucleated Red Blood Cells 0.0 % Sodium Level 140 mmol/L (136-145) Potassium Level 3.7 mmol/L (3.5-5.1) Chloride Level 107 mmol/L (98-107) Carbon Dioxide Level 26 mmol/L (20-31) Anion Gap 7 (5-15) Blood Urea Nitrogen 10 mg/dL (9-23) Creatinine 0.54 mg/dL (0.550-1.02) Glomerular Filtration Rate Calc 117 mL/min (>90) BUN/Creatinine Ratio 18.5 (10.0-20.0) Serum Glucose 153 mg/dL (74-106) Calcium Level 8.5 mg/dL (8.7-10.4) Total Bilirubin 0.3 mg/dL (0.2-1.0) Aspartate Amino Transferase (AST) 32 U/L (13-40) Alanine Aminotransferase (ALT) 58 U/L (7-40) Alkaline Phosphatase 71 U/L (46-116) Total Protein 5.9 g/dL (5.7-8.2) Albumin 3.7 g/dL (3.2-4.8) Prothrombin Time 12.0 sec (9.3-11.8) Prothrombin Time INR 1.14 (0.9-1.15) Activated Partial Thromboplast Time 32.4 SEC (24.5-34.5) Magnesium Level 1.8 mg/dL (1.6-2.6) Vitamin B12 Level 333 pg/mL (211-911) Vitamin D 25-Hydroxy 39.7 ng/mL (30.0-100) Thyroid Stimulating Hormone (TSH) 3.52 uIU/mL (0.55-4.78) POC Glucose 155 mg/dl (70-106) Test 02/21/24 18:47 02/21/24 18:28 02/21/24 17:20 Lipase 31 U/L (12-53) Urine Test Negative (Negative) Urine Color Colorless (Yellow) Urine Clarity Clear (Clear) Urine pH 7.5 (5.0-9.0) Urine Specific [place] 1.006 (1.001-1.035) Urine Protein Negative (Negative) Urine Ketones Negative (Negative) Urine Blood Negative /uL (Negative) Urine Nitrite Negative (Negative) Urine Bilirubin Negative (Negative) Urine Urobilinogen Normal mg/dL (Negative) Urine Leukocyte Esterase 3+ /uL (Negative) Urine RBC 1 /hpf (0 - 4) Urine WBC 8 /hpf (0 - 5) Urine Squamous Epithelial Cells Few /hpf (<5) Urine Amorphous Crystals Few /hpf (None Seen) Urine Bacteria Few /hpf (None Seen) Urine Mucus Few (None Seen) Urine Glucose Normal mg/dL (Normal) Other Laboratory Tests 02/24/24 05:20 Brief Hx & Hospital Course: Patient is 43 years old male with past medical history of prediabetes mellitus, hypertension, hyperlipidemia, anxiety, morbid obesity, history of 3 laparoscopic surgery for ovarian cyst came with a complaint of abdominal pain. As per patient patient started having abdominal pain in the epigastric and rapid upper abdominal region started 1 day before, gradual in nature, sharp pain, 10/10 at the beginning now 9/10, moving around the upper abdomen, some pain relief with bowel movement. Patient also endorsed nausea but no vomiting, feeling chilled but no fever. Patient was seen in surgical consult underwent cholecystectomy see op report below. Patient tolerated the procedure well. Patient has a A1c of 7.5 patient reports she is prediabetic but did not know of her elevated hemoglobin A1c. Patient wishes to be started on medication therefore I have started the patient on Jardiance 10 mg p.o. q.day. Patient needs to continue monitoring her blood sugars at home and see primary care doctor to be referred for ophthalmology check and Podiatry check. Patient was discussed with lifestyle modifications and dietary changes. Patient will be discharged home with a ELIZABETH drain needs to see surgical clinic. Here the patient develops any UTI like symptoms redness in genital area needs to stop her medications and see primary care doctor as this can be signs of a serious infection. Operations or Procedures DATE OF SURGERY: 02/23/2024 PREOPERATIVE DIAGNOSES: Cholelithiasis and cholecystitis. POSTOPERATIVE DIAGNOSES: Morbid obesity, cholelithiasis, and cholecystitis. SURGEON: Doug Parnell MD ANESTHESIA: General endotracheal. ANESTHESIOLOGIST: ____. PROCEDURE: Laparoscopy, laparoscopic cholecystectomy. DESCRIPTION OF PROCEDURE: Under general endotracheal anesthesia, with the patient's skin prepped and draped, supraumbilical incision was made and Veress needle inserted by the hanging drop technique in order to establish pneumoperitoneum to 15 mmHg pressure by insufflation with carbon dioxide. With the abdomen fully distended, the needle was removed and replaced with a 5 mm trocar port through which a 0-degree viewing laparoscope was inserted and laparoscopy was performed. It was hampered by the patient's morbid obesity; however, no obvious unexpected pathology was encountered. Under direct vision, additional 5 and 10 mm ports were inserted. The 5 mm through the right anterior axillary line at the level of the umbilicus and the subxiphoid skin was used for insertion of a 10 mm port. The gallbladder was massively dilated, visibly distended and affected by chronic as well as acute cholecystitis. The gallbladder was placed on tension. The cystic duct and cystic artery were meticulously dissected. It was very difficult to visualize due to the patient's obesity as well as inflammatory changes. However, once the cystic duct was identified at the site of its exit from the gallbladder, it was skeletonized and traced into the hepaticocystic triangle so as to minimize the potential for inadvertent injury to the common bile duct. Similarly, the cystic artery was identified, traced into the hepaticocystic triangle and again after being skeletonized of much adipose tissue. It was controlled with Hemoclips and divided between them. Subsequently, the gallbladder, which was almost entirely intrahepatic, was resected from its liver bed by electrocautery and traction. The fact that the gallbladder was intrahepatic resulted in denuding of significant portion of the liver parenchyma and the gallbladder fossa, which necessitated insertion of a 10 mm Sancho-Mills drain underneath the right lobe of the liver, which was then exteriorized through the 5 mm port site on the right lateral abdomen secured with a 2-0 nylon suture. The right upper quadrant was irrigated, irrigant was aspirated. Hemostasis was meticulously accomplished, found to be complete. At the termination of the procedure, there was no evidence of bleeding from either the port sites or from the liver bed of the gallbladder. The pneumoperitoneum was evacuated. Fascial defect closed using 0 Vicryl. Metallic skin cristhian used for approximation of skin edges. The patient remained hemodynamically stable throughout the procedure, left the operating room following an accurate needle and sponge count. The patient's , Mitchell was thoroughly informed in the waiting room and was given a sample of the multitude of very large stones, which had occupied the patient's gallbladder. These were washed prior to giving it to the patient's . Condition at Discharge: Stable Final Diagnosis/Problems List # Acute Cholecystitis - Cont Abx - s/p Surgery 02/23/24 # DM2 A1c 7.5 See PCP to start meds # Obesity - [employer] on weight loss and dietary changes Discharge Disposition: Home Discharge Instruct/Medications Diet: Consistent carbohydrate Activity: Light activity Follow Up/Referral: Dr. Fischl in 1 week PCP in 1 week Medications: See [facility] Discharge Statement: "Patient was advised to return to the ER or call 911 if any headaches, dizziness, shortness of breath, chest pain, abdominal pain, bleeding, fevers, or worsening of medical condition. Patient was counseled about treatment plan, medications, possible side effects, patientverbalized understanding. All questions were answered to the best of my ability. This discharge took greater then 30 minutes in planning, reviewing documentation, counseling the patient, and discussing with other team members." ASSESSMENT ASSESSMENT Assessment Date of Service: Feb 24, 2024 Billing Provider: LIUDMILA DEGROOT MD Common Visit Codes: 14733-YKO/OBS DISCH DAY >30min LIUDMILA DEGROOT MD Feb 24, 2024 17:00
== END 2024-02-24 18:24 | disposition home or self-care (01) | DRG 854 ==
LOC: ER 18:04 → OVERFLOW 20:39 → WEST WING 02-23 02:49
PROVIDERS: ADMIT Internal Medicine; ATTEND Internal Medicine
PROC: 0FT44ZZ Resection of Gallbladder, Percutaneous Endoscopic Approach (ICD-10-PCS; principal; 2024-02-23 12:00)
DX: A41.9 Sepsis, unspecified organism (principal); K80.12 Calculus of gallbladder with acute and chronic cholecystitis without obstruction; Z68.41 Body mass index [BMI] 40.0-44.9, adult; N39.0 Urinary tract infection, site not specified; E87.6 Hypokalemia; E11.9 Type 2 diabetes mellitus without complications; I10 Essential (primary) hypertension; E78.5 Hyperlipidemia, unspecified; F41.9 Anxiety disorder, unspecified; E66.01 Morbid (severe) obesity due to excess calories; Z79.84 Long term (current) use of oral hypoglycemic drugs
CPT/HCPCS: 36415; 71045; 74176; 76705; 78226; 80048; 80053; 81001; 81025; 82306; 82607; 82962; 83690; 83735; 84443; 85025; 85610; 85730; 86850; 86900; 86901; 87040; 87070; 87075; 87086; 87205; G0378; J0131; J0330; J1815; J1885; J2003; J2250; J2405; J2470; J2704; J3490

== ENCOUNTER 2024-06-05 08:26 | Day surgery (SDC) | payer OTHER ==
[2024-05-29 13:49] LABS: Urine Bacteria None Seen /hpf (None Seen)
[2024-05-29 13:55] LABS: Basophils # (auto) 0.1 10 ^3/uL (0-0.2); Eosinophils # (auto) 0.1 10 ^3/uL (0-0.8); Hemoglobin 13.5 g/dL (12.2-16.2); Lymphocytes # (auto) 1.9 10 ^3/uL (0.4-5.4); Monocytes # (auto) 0.5 10 ^3/uL (0-1.3); Platelet Count (auto) 362 10^3/uL (140-450)
[2024-05-29 13:57] LABS: Basophils % (auto) 1.1 % (0.0-2.0); Hematocrit 41.4 % (36.0-46.0); Lymphocytes % (auto) 16.6 % (10.0-50.0); Mean Corpuscular Hemoglobin 26.6 pg (28.0-32.0); Mean Corpuscular Hgb Conc. 32.7 g/dL (32.0-36.0); Mean Corpuscular Volume 81.3 fL (80.0-100.0); Monocytes % (auto) 4.2 % (0.0-12.0); Neutrophils # (auto) 8.8 10 ^3/uL (1.6-8.6); Neutrophils % (auto) 77.1 % (37.0-80.0); Red Cell Distribution Width 14.6 % (11.8-14.3); White Blood Cell 11.4 10^3/uL (4.4-10.8)
[2024-05-29 14:16] LABS: Alanine Aminotransferase 22 U/L (7-40); Alkaline Phosphatase 69 U/L (46-116); Anion Gap 7 (5-15); BUN/Creatinine Ratio 17.1 (10.0-20.0); Bilirubin, Total 0.3 mg/dL (0.2-1.0); Blood Urea Nitrogen 12 mg/dL (9-23); Calcium 10.1 mg/dL (8.7-10.4); Carbon Dioxide 29 mmol/L (20-31); Chloride 101 mmol/L (98-107); Sodium 137 mmol/L (136-145); Total Protein 7.3 g/dL (5.7-8.2)
[2024-05-29 14:19] LABS: Albumin 4.9 g/dL (3.2-4.8); Aspartate Aminotransferase 9 U/L (13-40); Glucose 123 mg/dL (74-106); Potassium 3.5 mmol/L (3.5-5.1)
[2024-05-29 14:25] LABS: INR 1.01 (0.9-1.15); Partial Thromboplastin Time 32.6 SEC (24.5-34.5); Prothrombin Time 10.7 sec (9.3-11.8)
[2024-05-29 14:34] LABS: Urine Blood Negative /uL (Negative); Urine Clarity Clear (Clear); Urine Color Colorless (Yellow); Urine Protein, UAD Negative (Negative); Urine Specific Gravity 1.015 (1.001-1.035); Urine Squamous Epithelial Cell FEW /hpf (<5); Urine Urobilinogen Normal (Negative); Urine WBC 2 /HPF (0-5)
[~2024-06-05] VITALS: Ht 175.3 cm; Wt 113.4 kg
[~2024-06-05 08:26] MED LIST: CITA-77 PO; DAPA1TAB4 PO; LOSA100T25 PO; SEMA2INJ3 SC
[2024-06-05] MEDS ORDERED: PROPOFOL 10 MG/ML 20 ML IV ONE (10:41)
[2024-06-05] MEDS ORDERED: fentaNYL CITRATE 100 MCG/2 ML VL ONE ×2 (10:41→12:14)
[2024-06-05] MEDS ORDERED: MEPERIDINE HCL (25 MG/ML) 1ML VIAL ONE (10:43)
[2024-06-05] MEDS: ceFAZolin 2 GM/D5W100ml 100 ML IV ONE (11:59)
[2024-06-05] MEDS ORDERED: ONDANSETRON HCL 4 MG/2 ML VIAL ONE (12:25)
[2024-06-05] MEDS ORDERED: DexAMETHasone SOD PHOS 10MG/1ML VIAL INJ ONE (12:25)
[2024-06-05] MEDS: BUPIVACAINE HCL 50 ML ONE (12:49)
[2024-06-05 13:05] VITALS: PULSE 109; RESP 14; TEMP 99.1; O2SAT 94
[2024-06-05] MEDS: ACETAMINOPHEN IV 1000 MG/100ML (10MG/ML) IV PRN (13:25)
[2024-06-05] MEDS: ONDANSETRON HCL 4 MG/2 ML VIAL IV ONE (13:30)
[2024-06-05] MEDS: MEPERIDINE HCL (25 MG/ML) 1ML VIAL IV PRN (13:30)
[2024-06-05] MEDS: ROPIVACAINE 0.5% (5MG/ML) 20ML AMPULE IJ ONE (13:38)
[2024-06-05] MEDS: CIPROFLOXACIN 400MG/200ML 200 ML IV ONE (13:38)
[2024-06-05] MEDS: BACITRACIN TOP OINT 1 UD PKG TOP ONE (13:38)
[2024-06-05] MEDS: HYDROmorphone HCL 2 MG/ML VL/or syr IV PRN (13:40)
[2024-06-05 13:51] VITALS: PULSE 95; RESP 12; O2SAT 92
[2024-06-05] MEDS: KETOROLAC TROMETH 30 MG/ML 1ML VIAL IV ONE (14:37)
[2024-06-05] MEDS ORDERED: TRAM50TA2 PO (14:46)
[2024-06-05] MEDS ORDERED: ASPI-498 OR (14:47)
[2024-06-05] MEDS: oxyCODONE HCL 5MG TAB PO PRN (14:50)
[2024-06-05 15:00] VITALS: PULSE 86; RESP 12; O2SAT 96
[2024-06-05 15:20] VITALS: BP 117/67; PULSE 95; RESP 12; O2SAT 94
--- NOTE | 2024-06-14 17:36 | DVHOP2 ---
Operative Report - 2 Report Details Date: 06/14/24 Preop Diagnosis: Right knee chondromalacia patella Postop Diagnosis: Right knee chondromalacia patella and chondromalacia of medial and lateral compartments Surgeon: Kayce Oleary MD Chief Privacy Officer: DELORES Coburn Anesthesiologist: Dr Carpio Anesthesia: General Implant: None Consent: The patient was informed of the risks and benefits of the procedure. These include but are not limited to complications of anesthesia, postoperative infection, incomplete relief of symptoms, recurrence of symptoms, damage to blood vessels, nerves and tendons, deep venous thrombosis, pulmonary embolism and possible need for repeat surgery in the future. Complications: None Estimated Blood Loss: 5 ml Indications for Surgery: The patient is a 43Y female who continued to have anterior knee pain despite non-op management of PT and observation. Clinical and radiological evaluation demonstrated some chondromalacia and lateral patellar tilt. Surgery in the form of knee arthroscopy was discussed with her. Benefits, risks and treatment alternatives to surgery were discussed. Pros and cons of various treatment options were discussed. Surgical complications including neurovascular injury, stiffness, infection, dislocation, fracture, non-union, malunion, loss of limb or life were discussed. The patient/family decided to proceed with the surgery Name of Procedure Performed Right knee arthroscopy with lateral release and chondroplasty of trochlea, p atella, lateral tibial plateau and medial femoral condyle Procedure Details Procedure Details: The patient was identified in the preoperative holding area and the surgical site was marked. The consent was verified. The patient was brought into the operating room and placed supine on the operating table. General anesthesia was administered. A tourniquet was applied over the proximal thigh. All the bony prominences were appropriately padded. The knee was positioned appropriately. The extremity was now prepped and draped in the usual sterile manner. A timeout was called out to confirm the identity of the patient, the nature of surgery, the site of surgery, the availability of implants and x-rays and allergies to medications. A standard anterolateral portal was established. A 30 degree scope was inserted. A standard anteromedial portal was established, a probe was inserted and the findings are as follows 1. Chondromalaca trochlea, patella 2. Intact ACL and PCL 3. Grade II small focal area of medial compartment cartilage chondromalacia lateral tibial plateau 4. Intact lateral meniscus and Grade III small focal area of lateral compartment cartilage on the tibia. 5. Grade II chondromalacia focal area trochlea 6. Lateral patellar tilt Chondroplasty was performed using a shaver. Unstable cartilage was stabilized. The patient had significant lateral patellar tilt and I decided to release this as per preoperative planning and discussion with the patient. A hook cautery wa s used to release the lateral patellofemoral ligament. Care was taken not to extend too superior into the muscle and too deep. Tilt was improved significantly. Irrigation was given. The skin incisions were closed with 3-0 Monocryl. sterile dressing was applied. The knee was placed in the brace. Disposition: Good, the patient was extubated and taken to the recovery without any complications care plan: Weightbear as tolerated. To follow up in two weeks. To start physical therapy and [id number] exercises at that visit. Condition Good Disposition Home KAYCE OLEARY MD Jun 14, 2024 17:36
== END 2024-06-05 17:15 | disposition home or self-care (01) ==
LOC: SUR 08:26
PROVIDERS: ATTEND Orthopaedic Surgery Sports Medicine
DX: M22.41 Chondromalacia patellae, right knee (principal); E66.9 Obesity, unspecified; Z68.36 Body mass index [BMI] 36.0-36.9, adult; I10 Essential (primary) hypertension; E11.9 Type 2 diabetes mellitus without complications; F41.9 Anxiety disorder, unspecified; F32.A Depression, unspecified; Z79.899 Other long term (current) drug therapy; Z98.890 Other specified postprocedural states; Z90.49 Acquired absence of other specified parts of digestive tract; Z79.84 Long term (current) use of oral hypoglycemic drugs
CPT/HCPCS: 29873; 29999; 36415; 64447; 80053; 81001; 82962; 84702; 85025; 85610; 85730; J0744; J1100; J1171; J1885; J2175; J2405; J2704; J2795; J3010; J3490; J0131